=== PATIENT | male | born 1990 | race Caucasian/White ===

== ENCOUNTER → 2021-05-30 08:57 | Outpatient (BNVA) | payer OTHER, SELFPAY | PROVIDERS: Visit Provider Nurse Practitioner ==

== ENCOUNTER 2021-06-29 10:14 | Outpatient (REF) | payer OTHER, SELFPAY ==
[2021-07-05 07:26] LABS: Gastrin 166 pg/mL (<=100)
== END 2021-06-29 10:15 | disposition home or self-care (01) ==
LOC: HO.LAB 10:14
PROVIDERS: Visit Provider Nurse Practitioner
DX: K21.9 Gastro-esophageal reflux disease without esophagitis (principal)
CPT/HCPCS: 36415; 82941

== ENCOUNTER → 2021-07-04 08:48 | Outpatient (BNVA) | payer OTHER, SELFPAY | PROVIDERS: Visit Provider Nurse Practitioner ==

== ENCOUNTER → 2021-08-22 08:22 | Outpatient (BNVA) | payer OTHER, SELFPAY | PROVIDERS: Visit Provider Nurse Practitioner ==

== ENCOUNTER 2021-11-28 08:31 | Outpatient (REF) | payer OTHER, SELFPAY ==
--- NOTE | ~2021-11-28 | FL_ITS ---
EXAMINATION: XR UPPER GI SERIES WITH SMALL BOWEL CLINICAL INFORMATION: Abdominal pain. COMPARISON: None. TECHNIQUE: Routine upper GI contrast study with small bowel follow-through is performed. FINDINGS: Single supine view of the abdomen prior to the GI study reveals scattered stool in the colon. There are scattered granulomas in the pelvis. No organomegaly. No bony abnormality. Following oral administration of thick barium and effervescent granules, there is normal propagation of bolus from the oral cavity through the pharynx and esophagus and into the stomach without any evidence of obstruction, narrowing or stricture. The course, caliber and peristalsis of the stomach and the duodenal bulb and the sweep are normal in lying position. The mucosal pattern of the stomach and the duodenum is normal. Sequential images obtained through the small bowel loops reveal normal course, caliber and peristalsis of the small bowel loops. The small bowel transit time is 30 minutes. Spot images of the abdomen reveals normal ileocecal junction and terminal ileum. Appendix is not visualized. FLUOROSCOPY TIME: 2.9 minutes. DOSE AREA PRODUCT: 21.235 uGy-m2 (microgray-meter squared). FL/FL upper GI small bowel IMPRESSION: Unremarkable upper GI exam. Unremarkable small bowel follow-through with small bowel transit time of 30 minutes.
== END 2021-11-28 08:32 | disposition home or self-care (01) ==
LOC: HO.XRAY 08:31
PROVIDERS: PCP Nurse Practitioner; Visit Provider Nurse Practitioner
DX: K21.9 Gastro-esophageal reflux disease without esophagitis (principal); K25.9 Gastric ulcer, unspecified as acute or chronic, without hemorrhage or perforation
CPT/HCPCS: 74240; 74248

== ENCOUNTER → 2021-12-05 10:49 | Outpatient (BNVA) | payer OTHER, SELFPAY | PROVIDERS: PCP Nurse Practitioner; Visit Provider Nurse Practitioner | DX: K21.9 Gastro-esophageal reflux disease without esophagitis (principal); R19.7 Diarrhea, unspecified | CPT/HCPCS: 99212 ==

== ENCOUNTER 2022-02-18 13:15 | Outpatient (REF) | payer OTHER, SELFPAY ==
[2022-02-27 16:37] LABS: Pancreatic Elastase-1 >500 mcg/g
== END 2022-02-18 13:16 | disposition home or self-care (01) ==
LOC: HO.LNP 13:15
PROVIDERS: Visit Provider Nurse Practitioner
DX: K21.9 Gastro-esophageal reflux disease without esophagitis (principal); R19.7 Diarrhea, unspecified
CPT/HCPCS: 82656

== ENCOUNTER 2022-02-20 10:00 | Outpatient (REF) | payer OTHER, SELFPAY | END 2022-02-20 10:01 | disposition home or self-care (01) | LOC: HO.LAB 10:00 | PROVIDERS: Visit Provider Nurse Practitioner | DX: R19.7 Diarrhea, unspecified (principal); K21.9 Gastro-esophageal reflux disease without esophagitis; K30 Functional dyspepsia; K25.9 Gastric ulcer, unspecified as acute or chronic, without hemorrhage or perforation; Z01.82 Encounter for allergy testing | CPT/HCPCS: 36415; 86003; 99212 ==

== ENCOUNTER → 2022-03-20 12:19 | Outpatient (BNVA) | payer OTHER, SELFPAY | PROVIDERS: Visit Provider Nurse Practitioner | DX: K25.9 Gastric ulcer, unspecified as acute or chronic, without hemorrhage or perforation (principal); K21.9 Gastro-esophageal reflux disease without esophagitis | CPT/HCPCS: 99212 ==

== ENCOUNTER → 2022-06-26 10:59 | Outpatient (BNVA) | payer OTHER, SELFPAY | PROVIDERS: Visit Provider Nurse Practitioner | DX: K21.9 Gastro-esophageal reflux disease without esophagitis (principal); K58.2 Mixed irritable bowel syndrome; K30 Functional dyspepsia; K25.9 Gastric ulcer, unspecified as acute or chronic, without hemorrhage or perforation; Z79.899 Other long term (current) drug therapy | CPT/HCPCS: 99212 ==

== ENCOUNTER → 2023-02-12 10:47 | Outpatient (BNVA) | payer OTHER, SELFPAY | PROVIDERS: Visit Provider Nurse Practitioner | DX: K25.9 Gastric ulcer, unspecified as acute or chronic, without hemorrhage or perforation (principal); K21.9 Gastro-esophageal reflux disease without esophagitis; K58.2 Mixed irritable bowel syndrome; K30 Functional dyspepsia | CPT/HCPCS: 99212 ==

== ENCOUNTER → 2023-03-24 10:51 | Outpatient (BNVA) | payer OTHER, SELFPAY | PROVIDERS: Visit Provider Internal Medicine | DX: R05.9 Cough, unspecified (principal); R12 Heartburn; R11.10 Vomiting, unspecified | CPT/HCPCS: 99212 ==

== ENCOUNTER 2023-08-20 06:31 | Day surgery (SDC) | payer OTHER, SELFPAY ==
[2023-05-25 16:30] VITALS: BMI 21.0
--- NOTE | 2023-08-19 10:19 | HO.ANESPROP2 ---
Documented by User: Nu Pelletier NP 08/19/23 10:19 HPI - Anesthesia Eval Consult details Narrative: 33yo M for Upper Endoscopy [facility] Active Problems Active Problems: All Active Problems (Updated 03/24/23 @ 11:14 by Evy Combs MD) Regurgitation of food (Acute) Chronic heartburn (Acute) Irritable bowel syndrome with both constipation and diarrhea (Acute) Cough (Acute) Delayed gastric emptying (Acute) H/O esophagogastroduodenoscopy (Acute) Diarrhea (Acute) Gastric erosions (Acute) GERD (gastroesophageal reflux disease) (Acute) Surgical History Surgical History H/O esophagogastroduodenoscopy Social History Social History Household Members: Family Alcohol intake: never Patient Tobacco Use Status: Never used Tobacco Use of substances other than those prescribed or required for medical reasons: No Are you DNR?: No Advance Directives: No Advance Directives Information Provided: Yes Meds Allergies Allergy/AdvReac Type Severity Reaction Status Date / Time No Known Allergies Allergy Verified 03/24/23 10:54 Exam Exam Date and Time: August 19, 2023 1019 Height,Weight and Vital Signs: Height 5 ft 6 in Weight 58.967 kg Assessment and Plan Assessment Anesthesia Assessment: Chart Reviewed Documented by User: Segun Starks MD 08/20/23 07:31 [facility] Family History Family history of problems with anesthesia: No Surgical History Surgical History H/O esophagogastroduodenoscopy History of Problems with Anesthesia: No Social History Social History Household Members: Family Alcohol intake: never Patient Tobacco Use Status: Never used Tobacco Use of substances other than those prescribed or required for medical reasons: No Are you DNR?: No Advance Directives: No Advance Directives Information Provided: Yes Meds Allergies Allergy/AdvReac Type Severity Reaction Status Date / Time No Known Allergies Allergy Verified 03/24/23 10:54 Exam Airway Mallampati Class: II TM Dist: >3cm Neck ROM: Full Loose/Missing/Broken Teeth: No Heart: rrr Lungs: clear Assessment and Plan Final Anesthetic Review Family History of Problems with Anesthesia: No History of Problems with Anesthesia: No NPO: Yes ASA Class: II Final Preanesthetic Review: No Changes in Pt Med Stat, Meds/Allgs Chart Reviewed, Consent Obtained/Reviewed and Anes Risks/Benef Reviewed Patient Risk: Low Procedure Risk: Low Anesthetic Plan Anesthetic Plan: MAC: Disposition: Standard PACU
[2023-08-20 06:54] VITALS: BP 127/75; PULSE 48; RESP 16; TEMP 36.8; O2SAT 100
[2023-08-20] MEDS: Lactated Ringers 1,000 ML 100 ML IVCONT (07:11)
--- NOTE | 2023-08-20 07:11 | PC.NURSE ---
iv infiltrated and bruised to right hand. applied ice pack.
--- NOTE | 2023-08-20 07:53 | P.OP_ITS ---
Operative Note Operative Note Date of Service: 08/20/23 Narrative: Procedure: Esophagogastroduodenoscopy Endoscopist: Evy Combs MD Indication: Reflux, globus sensation Anesthesia Provider: Dr Segun Starks Anesthesia Type: MAC ?? EGD Procedure:?? The procedure, indications, preparation and potential complications were reviewed with the patient, who indicated understanding and gave written informed consent to proceed. A physical exam was performed. The endoscope was introduced through the mouth, and advanced to the second part of duodenum. The mucosa was carefully examined on slow withdrawal of the endoscope. The patient tolerated the procedure well. There were no immediate complications.? ? EGD Findings:? * Esophagus:? Normal mucosa noted in the entire esophagus. The Z line was at 40 cm. Middle and lower esophagus forceps biopsies were obtained to rule out eosinophilic esophagitis. * Stomach:? Normal mucosa was noted in the stomach. Retroflexion was performed in the cardia. * Duodenum:? Normal mucosa was noted in the whole of the examined duodenum. Cold forceps biopsies were taken from duodenal bulb and second portion of the duodenum to rule out celiac sprue. Additional intervention: A soft tipped Savary wire was introduced through the biopsy channel and advanced to the antrum. The gastroscope was then backed out. A Savary Mikael bougie was advanced over the guidewire and the esophagus was dilated to 19 mm. No resistance was felt. On relook, there was no tear or he noted, indicating no stricture or narrowing in the esophagus. ? EGD Impressions:? * Normal esophagus (biopsy, dilation) * Normal stomach * Normal duodenum (biopsy) ?? Recommendations:?? * Follow biopsy results. Our office will call or send a letter with results within 7-10 days. * There was no endoscopic evidence of erosive esophagitis on exam today despite being off PPI x 2 weeks. * If biopsies are negative as well, would consider Cha study next for further evaluation. * Avoid NSAIDs and smoking. Above has been reviewed with the patient.
--- NOTE | 2023-08-20 07:53 | MHC.SHP ---
Pre-Procedural Eval Section A Date of Service: 08/20/23 Section B Chief Complaint: Gastric ulcer,reflux disease Relevant Social History: None Present Medications: see Short Stay Collaborative assessment Medical History: No relevant PMH History of Previous Operations: No relevant previous surgery Allergies: Allergies Allergy/AdvReac Type Severity Reaction Status Date / Time No Known Allergies Allergy Verified 03/24/23 10:54 Review of Systems Review of Systems Comment: 10 point ROS negative Exam Exam Comment: Gen appear: No acute distress HEENT: no icterus Chest: No overt resp distress Abd: soft, nontender, nondistended Psych: Stable affect, answering questions appropriately Neuro: A/Ox3 noted to move all extremities spontaneously Ext: no peripheral edema Plan Diagnosis/Plan: Unchanged I have reviewed the history and physical and performed a pertinent physical examination on my patient. No changes have occurred unless specified. Time Spent With Patient Time: Total time managing care of this patient today ____ minutes.
[2023-08-20 08:19] VITALS: BP 115/55; PULSE 69; RESP 16; TEMP 36.1; O2SAT 98
[2023-08-20 08:34] VITALS: BP 114/75; PULSE 64; RESP 16; TEMP 36.5; O2SAT 100
[2023-08-20 08:49] VITALS: BP 105/67; PULSE 59; RESP 16; TEMP 36; O2SAT 100
== END 2023-08-20 09:14 | disposition home or self-care (01) ==
PROVIDERS: Visit Provider Internal Medicine
PROC: 0DJ08ZZ Inspection of Upper Intestinal Tract, Via Natural or Artificial Opening Endoscopic (ICD-10-PCS; CPT 43235; principal; 2023-08-20 07:30)
DX: K21.9 Gastro-esophageal reflux disease without esophagitis (principal)
CPT/HCPCS: 43239; 43248; 88305; C1769

== ENCOUNTER → 2023-08-20 06:31 | Outpatient (BNV) | payer OTHER, SELFPAY | PROVIDERS: Visit Provider Internal Medicine | DX: K21.9 Gastro-esophageal reflux disease without esophagitis (principal); R09.89 Other specified symptoms and signs involving the circulatory and respiratory systems | CPT/HCPCS: 43239; 43248 ==

== ENCOUNTER 2023-09-08 11:04 | Outpatient (AMB) | payer OTHER, SELFPAY ==
--- NOTE | 2023-09-08 11:10 | A.OFFVIS_ITS ---
Intake Vital Signs 09/08/23 11:12 Weight 138 lb 14.259 oz BP 120/63 Blood Pressure Location Lt brachial Position Sitting Pulse 59 Intake Visit Reasons: S/P EGD; Garret Intake Note: Vaughn presents in the office as a follow up EGD. CC: He states that he is here today for results to the [employer]. Electrocardiographic Technician Required: No Allergies No Known Allergies Allergy (Verified 09/08/23 11:12) HPI HPI Comments History of Present Illness Details 32y.o M with longstanding complaint of h eartburn refractory to PPI who is seeing me for second opinion and here for follow up after EGD done last month. Has seen January Antonio. EGD 2019: Mild erythema at GEJ, and antrum. No esophagus biopsies but stomach biopsies showed mildly elevated eosinophil count. Normal duodenal bx. Has tried multiple PPIs over the years without any significant relief including omeprazole, esomeprazole, lansoprazole, rabeprazole. States sx started almost 10 years ago and describes them as retrosternal heartburn with globus sensation increased coughing, sometimes also has regurgitation. No difficulty swallowing, no N,V. Does report intermittent diarrhea but notes it with dairy only and resolves when he avoids dairy. 08/20/23: EGD * Normal esophagus (biopsy, dilation) * Normal stomach * Normal duodenum (biopsy) Path: Diagnosis A. Duodenum, biopsy: Duodenal mucosa with no specific change. B. Esophagus, lower, biopsy: Squamous mucosa with mild hyperplasia and rare intraepithelial eosinophils (up to 1 per high-power field) consistent with reflux esophagitis, and columnar mucosa with minimal chronic inactive inflamm ation; negative for intestinal metaplasia and dysplasia; no evidence of eosinophilic esophagitis. C. Esophagus, middle, biopsy: Squamous mucosa with no specific change; no columnar mucosa present; no evidence of eosinophilic esophagitis 09/08/23: Results of EGD and biopsy findings reviewed. Discussed that no endoscopic evidence of reflux such as erosive esophagitis, or other etiologies such as hiatal hernia, EoE etc. EGD was done off ppi and only had rare IELs on histology. He does report slight improvement of globus sensation with dilation. [facility] Surgical History H/O esophagogastroduodenoscopy Family History (Updated 09/08/23 @ 11:12 by BERT Miller) Mother Esophageal cancer Social History Household Members: Family Alcohol intake: never Patient Tobacco Use Status: Never used Tobacco Review of Systems Const All systems reviewed & are unremarkable except as noted in HPI and below Physical Exam Vital Signs: Last Vital Signs Pulse 59 09/08/23 11:12 BP 120/63 09/08/23 11:12 Gen appear: NAD HEENT: nonicteric, no cervical lymphadenopathy Chest: CTA CVS: Regular S1/S2 Abd: soft, nontender, nondistended, bowel sounds + Ext: no peripheral edema Neuro: A/Ox3, noted to move all extremities spontaneously Psych: interacting appropriately Assessment & Plan Assessment & Plan (1) Cough: Code(s): R05.9 - Cough, unspecified (2) Chronic heartburn: Code(s): R12 - Heartburn (3) Regurgitation of food: Code(s): R11.10 - Vomiting, unspecified Plan Discussed with the pt that in view of above findings ddx include hypersensitive esophagus vs functional dyspepsia vs NERD. Will trial TCA for first two and if minimal response can consider pH/impedence study. Plan: - Start nortriptyline 10mg PO at night - Common side effects reviewed - Pt advised to increase the dose to 20mg PO after 14 days - Follow up after 3 months to review response Medications: New nortriptyline Take 1 capsule at night for 2 weeks and then increase to 2 capsules at night 20 mg (2 x 10 mg) PO BEDTIME 180 caps 1RF 90 days Coding Level of Care Code Est Pt Level 4 (33449) Diagnoses Cough R05.9 Chronic heartburn R12 Regurgitation of food R11.10
[2023-09-08 11:12] VITALS: BP 120/63; PULSE 59
== END 2023-09-08 12:02 | disposition home or self-care (01) ==
PROVIDERS: Visit Provider Internal Medicine
DX: R05.9 Cough, unspecified (principal); R12 Heartburn; R11.10 Vomiting, unspecified
CPT/HCPCS: 99214

== ENCOUNTER → 2023-09-08 11:04 | Outpatient (BNVA) | payer OTHER, SELFPAY | PROVIDERS: Visit Provider Internal Medicine | DX: R12 Heartburn (principal); R11.10 Vomiting, unspecified; R05.9 Cough, unspecified | CPT/HCPCS: 99212 ==

== ENCOUNTER 2024-01-06 10:46 | Outpatient (AMB) | payer OTHER, SELFPAY ==
--- NOTE | 2024-01-06 10:49 | A.OFFVIS_ITS ---
Intake Vital Signs 01/06/24 10:50 Weight 149 lb 14.629 oz BP 144/78 H Blood Pressure Location Lt brachial Position Sitting Pulse 98 Intake Visit Reasons: follow up gastric ulcer Intake Note: Vaughn presents in the office as a follow up. CC: He states that there is no changes - treatment has not helped. Allergies No Known Allergies Allergy (Verified 01/06/24 10:51) HPI HPI Comments History of Present Illness Details 32y.o M with longstanding complaint of h eartburn refractory to PPI who is seeing me for second opinion and here for follow up after EGD done last month. Has seen January Antonio. EGD 2019: Mild erythema at GEJ, and antrum. No esophagus biopsies but stomach biopsies showed mildly elevated eosinophil count. Normal duodenal bx. Has tried multiple PPIs over the years without any significant relief including omeprazole, esomeprazole, lansoprazole, rabeprazole. States sx started almost 10 years ago and describes them as retrosternal heartburn with globus sensation increased coughing, sometimes also has regurgitation. No difficulty swallowing, no N,V. Does report intermittent diarrhea but notes it with dairy only and resolves when he avoids dairy. 08/20/23: EGD * Normal esophagus (biopsy, dilation) * Normal stomach * Normal duodenum (biopsy) Path: Diagnosis A. Duodenum, biopsy: Duodenal mucosa with no specific change. B. Esophagus, lower, biopsy: Squamous mucosa with mild hyperplasia and rare intraepithelial eosinophils (up to 1 per high-power field) consistent with reflux esophagitis, and columnar mucosa with minimal chronic inactive inflammation; negative for intestinal metaplasia and dysplasia; no evidence of eosinophilic esophagitis. C. Esophagus, middle, biopsy: Squamous mucosa with no specific change; no columnar mucosa present; no evidence of eosinophilic esophagitis 09/08/23: Results of EGD and biopsy findings reviewed. Discussed that no endoscopic evidence of reflux such as erosive esophagitis, or other etiologies such as hiatal hernia, EoE etc. EGD was done off ppi and only had rare IELs on histology. He does report slight improvement of globus sensation with dilation. 01/06/24: Here for follow up after TCA trial. Reports minimal improvement on Notryptiline 20 which he still continues. Sx are now a bit unpredictable i.e not always triggered by certain foods. Not on any PPI therapy but did not worsening of sx when went off PPIs. PFSH Surgical History H/O esophagogastroduodenoscopy Family History (Updated 09/08/23 @ 11:12 by BERT Miller) Mother Esophageal cancer Social History Household Members: Family Alcohol intake: never Patient Tobacco Use Status: Never used Tobacco Review of Systems Const All systems reviewed & are unremarkable except as noted in HPI and below Physical Exam Vital Signs: Last Vital Signs Pulse 98 01/06/24 10:50 BP 144/78 H 01/06/24 10:50 NAD Abd soft, nontender No overt resp distress A/Ox3 norm gait Assessment & Plan Assessment & Plan (1) Chronic heartburn: Code(s): R12 - Heartburn (2) Regurgitation of food: Code(s): R11.10 - Vomiting, unspecified Plan Discussed with the pt that in view of above findings ddx include hypersensitive esophagus vs functional dyspepsia vs NERD. Will escalate nortriptyline dose to 30 and refer for pH impedence study (favored over [place] to also capture weakly acidic events) to r/o NERD vs reflux hypersensitivity vs functional hearturn. Plan: - Increase nortriptyline 30mg PO at night - Common side effects reviewed - [place] be [place] [facility] [place] [facility] Follow up 6 weeks Medications: Changed From nortriptyline Take 1 capsule at night for 2 weeks and then increase to 2 capsules at night 20 mg (2 x 10 mg) PO BEDTIME 90 days 180 caps 1RF To nortriptyline Take 3 capsules at night 30 mg (3 x 10 mg) PO BEDTIME 90 days 270 caps 0RF Discontinued sucralfate Discontinued Reason: Patient no longer taking 2 grams (2 x 1 gram) PO BID 30 days 120 tabs 6RF rabeprazole Discontinued Reason: Patient no longer taking 40 mg (2 x 20 mg) PO BID 30 days 120 tabs 6RF K21.9 - Gastro-esophageal reflux disease without esophagitis, K25.9 - Gastric ulcer, unspecified as acute or chronic, without hemorrhage or perforation Coding Level of Care Code Est Pt Level 4 (23875) Diagnoses Chronic heartburn R12 Regurgitation of food R11.10
[2024-01-06 10:50] VITALS: BP 144/78; PULSE 98
== END 2024-01-06 11:17 | disposition home or self-care (01) ==
PROVIDERS: Visit Provider Internal Medicine
DX: R12 Heartburn (principal); R11.10 Vomiting, unspecified
CPT/HCPCS: 99214

== ENCOUNTER → 2024-01-06 10:46 | Outpatient (BNVA) | payer OTHER, SELFPAY | PROVIDERS: Visit Provider Internal Medicine | DX: R12 Heartburn (principal); R11.10 Vomiting, unspecified | CPT/HCPCS: 99212 ==

== ENCOUNTER 2024-02-17 11:02 | Outpatient (AMB) | payer OTHER, SELFPAY ==
--- NOTE | 2024-02-17 11:05 | A.OFFVIS_ITS ---
Vital Signs 02/17/24 11:07 Weight 154 lb 5.177 oz BP 127/80 Blood Pressure Location Lt brachial Position Sitting Pulse 97 Intake Visit Reasons: 6 weeks gastric ulcer Intake Note: Li presents in the office as a 6 week follow up for gastric ulcer. CC: Report that the increase in the dosage has not changed anything. Phlebotomy Director Required: No Allergies No Known Allergies Allergy (Verified 02/17/24 11:08) HPI Comments Details: 32y.o M with longstanding complaint of heartburn refractory to PPI who is seeing me for second opinion and here for follow up after EGD done last month. Has seen January Antonio. EGD 2019: Mild erythema at GEJ, and antrum. No esophagus biopsies but stomach biopsies showed mildly elevated eosinophil count. Normal duodenal bx. Has tried multiple PPIs over the years without any significant relief including omeprazole, esomeprazole, lansoprazole, rabeprazole. States sx started almost 10 years ago and describes them as retrosternal heartburn with globus sensation increased coughing, sometimes also has regurgitation. No difficulty swallowing, no N,V. Does report intermittent diarrhea but notes it with dairy only and resolves when he avoids dairy. 08/20/23: EGD * Normal esophagus (biopsy, dilation) * Normal stomach * Normal duodenum (biopsy) Path: Diagnosis A. Duodenum, biopsy: Duodenal mucosa with no specific change. B. Esophagus, lower, biopsy: Squamous mucosa with mild hyperplasia and rare intraepithelial eosinophils (up to 1 per high-power field) consistent with reflux esophagitis, and columnar mucosa with minimal chronic inactive inflammation; negative for intestinal metaplasia and dysplasia; no evidence of eosinophilic esophagitis. C. Esophagus, middle, biopsy: Squamous mucosa with no specific change; no columnar mucosa present; no evidence of eosinophilic esophagitis 09/08/23: Results of EGD and biopsy findings reviewed. Discussed that no endoscopic evidence of reflux such as erosive esophagitis, or other etiologies such as hiatal hernia, EoE etc. EGD was done off ppi and only had rare IELs on histology. He does report slight improvement of globus sensation with dilation. 01/06/24: Here for follow up after TCA trial. Reports minimal improvement on Notryptiline 20 which he still continues. Sx are now a bit unpredictable i.e not always triggered by certain foods. Not on any PPI therapy but did not worsening of sx when went off PPIs. 02/17/24: Here for follow up. No significant response to 30mg dosing of nortriptyline but i reviewed that may take up to 8 weeks before noticing response. Pt reports getting a phone call from [facility] but was not able to maco an appt at that time. Will call their office back. Otherwise, remaining c/o unchanged. PFSH Surgical History H/O esophagogastroduodenoscopy Family History Mother Esophageal cancer Social History Household Members: Family Alcohol intake: never Patient Tobacco Use Status: Never used Tobacco Review of Systems Const All systems reviewed & are unremarkable except as noted in HPI and below Physical Exam Vital Signs: Last Vital Signs Pulse 97 02/17/24 11:07 BP 127/80 02/17/24 11:07 NAD Nonicteric Normocephalic No overt resp distress No peripheral edema Assessment & Plan Assessment & Plan (1) Chronic heartburn: Code(s): R12 - Heartburn Category: Medical (2) Regurgitation of food: Code(s): R11.10 - Vomiting, unspecified Category: Medical Plan Discussed with the pt that in view of above findings ddx include hypersensitive esophagus vs functional dyspepsia vs NERD. Cont nortriptyline 30 mg. Referral sent to [facility] for pH impedence study (favored over [place] to also capture weakly acidic events) to r/o NERD vs reflux hypersensitivity vs functional hearturn. Pt aware to call them back to book appt. Plan: - Cont nortriptyline 30mg PO at night - Common side effects reviewed - Follow up after ph-impedance study completed Medications: Refilled nortriptyline Take 3 capsules at night 30 mg (3 x 10 mg) PO BEDTIME 270 caps 1RF 90 days Coding Level of Care Code Est Pt Level 3 (86654) Diagnoses Chronic heartburn R12 Regurgitation of food R11.10
[2024-02-17 11:07] VITALS: BP 127/80; PULSE 97
== END 2024-02-17 11:49 | disposition home or self-care (01) ==
PROVIDERS: Visit Provider Internal Medicine
DX: R12 Heartburn (principal); R11.10 Vomiting, unspecified
CPT/HCPCS: 99213

== ENCOUNTER → 2024-02-17 11:02 | Outpatient (BNVA) | payer OTHER, SELFPAY | PROVIDERS: Visit Provider Internal Medicine | DX: R12 Heartburn (principal); R11.10 Vomiting, unspecified | CPT/HCPCS: 99212 ==

== ENCOUNTER 2024-09-17 13:53 | Outpatient (AMB) | payer OTHER, SELFPAY ==
--- NOTE | 2024-09-17 13:58 | MHC.OFFWIV ---
Intake Vital Signs 09/17/24 13:59 Height 5 ft 8 in Weight 159 lb BMI 24.2 BP 112/62 Blood Pressure Location Lt brachial Position Sitting Pulse 96 Pulse Source Pulse Oximeter Temp 98.8 F Temp Source Oral Pulse Oximetry (%) 97 Oxygen Delivery Method Room Air Intake Visit Reasons: EP, pain in groin/testicles Patient Tobacco Use Status: Never used Tobacco Allergies No Known Allergies Allergy (Verified 09/17/24 14:00) HPI EP, pain in groin/testicles HPI Details Patient is a 34-year-old male with a history of IBS and GERD who comes to the walk-in clinic reporting a 1 year history of discomfort to the testicles bilaterally. He denies being sexually active prior to symptoms starting, or within the past year. The symptom does not interfere with masturbating or any other activities of daily living. His only other associated symptom is that he sometimes dribbles after voiding, however no baseline incontinence of urine otherwise, gross hematuria, urinary frequency or hesitancy or other altered stream issues. He denies pain with bowel movements, perineal pain or rectal pain, penile pain or discharge, rash, nausea vomiting diarrhea, weakness or dizziness, myalgias or malaise, abdominal pain, back or flank pain, or other significant associated symptoms. [facility] Surgical History H/O esophagogastroduodenoscopy Family History Mother Esophageal cancer Social History Household Members: Family Alcohol intake: never Patient Tobacco Use Status: Never used Tobacco Review of Systems Const All systems reviewed & are unremarkable except as noted in HPI and below Physical Exam Vital Signs: Last Vital Signs Temp 98.8 F 09/17/24 13:59 Pulse 96 09/17/24 13:59 BP 112/62 09/17/24 13:59 Pulse Ox 97 09/17/24 13:59 Oxygen Delivery Method Room Air 09/17/24 13:59 BMI result Body Mass Index 24.2 Results AMB Urinalysis, Automated UA Leukoctes 0 Cory/uL Last Edit by Alexandra Billy CMA on 09/17/24 14:12 UA Nitrite Negative Last Edit by Alexandra Billy CMA on 09/17/24 14:12 UA Urobilinogen 0.2 mg/dL Last Edit by Alexandra Billy CMA on 09/17/24 14:12 UA Protein 0 mg/dL Last Edit by Alexandra Billy, RADHA on 09/17/24 14:12 UA pH 6.5 Last Edit by Alexandra Billy, RADHA on 09/17/24 14:12 UA Blood 0 Jerome/uL Last Edit by Alexandra Billy CMA on 09/17/24 14:12 UA Specific Campbell 1.005 Last Edit by Alexandra Billy, RADHA on 09/17/24 14:12 UA Ketone Negative Last Edit by Alexandra Billy CMA on 09/17/24 14:12 UA Bilirubin 0 mg/dL Last Edit by Alexandra Billy CMA on 09/17/24 14:12 UA Glucose 0 mg/dL Last Edit by Alexandra Billy CMA on 09/17/24 14:12 Results Reviewed Results Reviewed: Laboratory Last Values Urine pH (Auto) 6.5 09/17/24 14:10 Specific Campbell (Auto) 1.005 09/17/24 14:10 Urine Protein (Auto) 0 mg/dL 09/17/24 14:10 Glucose (UA)(Auto) 0 mg/dL 09/17/24 14:10 Urine Ketones (Auto) Negative 09/17/24 14:10 Urine Blood (Auto) 0 Jerome/uL 09/17/24 14:10 Urine Nitrite (Auto) Negative 09/17/24 14:10 Urine Bilirubin (Auto) 0 mg/dL 09/17/24 14:10 Urine Urobilinogen (Auto) 0.2 mg/dL 09/17/24 14:10 Leukocyte Esterase (Auto) 0 Cory/uL 09/17/24 14:10 Assessment & Plan Assessment & Plan (1) Painful scrotum: Code(s): N50.82 - Scrotal pain Plan Patient is a 34-year-old male with a history of IBS and GERD who comes to the walk-in clinic reporting a year history of chronic scrotal discomfort. He reports being low risk for STDs as he is not sexually active. Urine was unremarkable on dip today. Physical exam overall unremarkable too, except for bilateral diffuse scrotal discomfort per patient. No penile or scrotal rash or lesions noted. He is overdue for medical evaluation by PCP and apparently was dropped for not being seen for 4 years. Therefore he is in need of a new provider, and we discussed that he should call the [facility] office [place] as he might be able to get in there sooner than most other offices, in light of new providers with open panels. In the meantime, I did put through a CBC for him. He is also welcome to come back to the walk-in on a weekday to be evaluated again to see if a scrotal ultrasound could be ordered on a STAT basis, although I told him that this is not guaranteed. I do not have the option for this here today on a Thursday however. In the meantime, he will monitor symptoms and will definitely follow up if symptoms persist or worsen. He was told to go to the emergency department with severe or worrisome symptoms. Orders: Orders AMB Urinalysis Automated 09/17/24 Z13.9 - Encounter for screening, unspecified Complete Blood Count no Diff 09/17/24 N50.82 - Scrotal pain Coding Level of Care Code Est Pt Level 4 (83545) Diagnoses Painful scrotum N50.82
[2024-09-17 13:59] VITALS: BP 112/62; PULSE 96; TEMP 37.1; O2SAT 97; BMI 24.2
== END 2024-09-17 14:51 | disposition home or self-care (01) ==
PROVIDERS: Visit Provider Physician Assistant Medical
DX: Z13.9 Encounter for screening, unspecified (principal)

== ENCOUNTER → 2024-09-17 13:53 | Outpatient (BNVA) | payer OTHER, SELFPAY | DX: N50.82 Scrotal pain (principal) | CPT/HCPCS: 81003 ==

== ENCOUNTER 2024-09-26 08:59 | Outpatient (REF) | payer OTHER, SELFPAY ==
[2024-09-26 10:10] LABS: Hematocrit 44.4 % (42.0-52.0); Mean Corpuscular HGB Conc 33.8 g/dl (31.0-36.0); Mean Corpuscular Hemoglobin 31.1 pg (27.0-33.0); Mean Corpuscular Volume 92.1 fL (80.0-98.0); Mean Platelet Volume 9.2 fL (9.4-12.4); Platelet Count 234 X10*3/uL (160-400); Red Blood Count 4.82 X10*6/uL (4.60-5.80); Red Cell Distribution Width 12.1 % (11.0-16.0); White Blood Count 5.4 X10*3/uL (4.8-10.8)
== END 2024-09-26 09:00 | disposition home or self-care (01) ==
LOC: HO.HMGCLDS 08:59
PROVIDERS: Visit Provider Physician Assistant Medical
DX: N50.82 Scrotal pain (principal)
CPT/HCPCS: 36415; 85027

== ENCOUNTER 2024-11-14 11:44 | Outpatient (AMB) | payer OTHER, SELFPAY ==
--- NOTE | 2024-11-14 11:53 | MHC.OFFVIS ---
Vital Signs 11/14/24 11:56 Height 5 ft 8 in Weight 158 lb 11.725 oz BMI 24.1 BP 127/82 Blood Pressure Location Lt brachial Position Sitting Pulse 100 Intake Visit Reasons: pt req follow up Intake Note: Vaughn presents in the office as a follow up. CC: states that he was unale to take care of himself and he wants to refresh on the plan of care from the last time. Want Ad Receiver Required: No Allergies No Known Allergies Allergy (Verified 11/14/24 11:56) HPI Comments Details: 32y.o M with longstanding complaint of heartburn refractory to PPI who is seeing me for second opinion and here for follow up after EGD done last month. Has seen January Alvarez. EGD 2019: Mild erythema at GEJ, and antrum. No esophagus biopsies but stomach biopsies showed mildly elevated eosinophil count. Normal duodenal bx. Has tried multiple PPIs over the years without any significant relief including omeprazole, esomeprazole, lansoprazole, rabeprazole. States sx started almost 10 years ago and describes them as retrosternal heartburn with globus sensation increased coughing, sometimes also has regurgitation. No difficulty swallowing, no N,V. Does report intermittent diarrhea but notes it with dairy only and resolves when he avoids dairy. 08/20/23: EGD Normal esophagus (biopsy, dilation) Normal stomach Normal duodenum (biopsy) Path: Diagnosis A. Duodenum, biopsy: Duodenal mucosa with no specific change. B. Esophagus, lower, biopsy: Squamous mucosa with mild hyperplasia and rare intraepithelial eosinophils (up to 1 per high-power field) consistent with reflux esophagitis, and columnar mucosa with minimal chronic inactive inflammation; negative for intestinal metaplasia and dysplasia; no evidence of eosinophilic esophagitis. C. Esophagus, middle, biopsy: Squamous mucosa with no specific change; no columnar mucosa present; no evidence of eosinophilic esophagitis 09/08/23: Results of EGD and biopsy findings reviewed. Discussed that no endoscopic evidence of reflux such as erosive esophagitis, or other etiologies such as hiatal hernia, EoE etc. EGD was done off ppi and only had rare IELs on histology. He does report slight improvement of globus sensation with dilation. 01/06/24: Here for follow up after TCA trial. Reports minimal improvement on Notryptiline 20 which he still continues. Sx are now a bit unpredictable i.e not always triggered by certain foods. Not on any PPI therapy but did not worsening of sx when went off PPIs. 02/17/24: Here for follow up. No significant response to 30mg dosing of nortriptyline but i reviewed that may take up to 8 weeks before noticing response. Pt reports getting a phone call from [facility] but was not able to maco an appt at that time. Will call their office back. Otherwise, remaining c/o unchanged. 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 Reports good response to nortryptyline carroll as notices return of sx if he forgets to take it for more than 3 days in a row. Occ will have break through heartburn carroll after specific foods. Had been referred to [facility] for pH impedence study but was not able to book appt due to his schedule as above. Now interested in pursuing it. [facility] Surgical History H/O esophagogastroduodenoscopy Family History Mother Esophageal cancer Social History Household Members: Family Alcohol intake: never Patient Tobacco Use Status: Never used Tobacco Review of Systems Const All systems reviewed & are unremarkable except as noted in HPI and below Physical Exam Vital Signs: Last Vital Signs Pulse 100 11/14/24 11:56 BP 127/82 11/14/24 11:56 BMI result Body Mass Index 24.1 No apparent distress Nonicteric Abdomen soft, nondistended Alert and oriented x3, normal gait Assessment & Plan Assessment & Plan (1) Chronic heartburn: Code(s): R12 - Heartburn Category: Medical (2) GERD (gastroesophageal reflux disease): Code(s): K21.9 - Gastro-esophageal reflux disease without esophagitis Category: Medical (3) Regurgitation of food: Code(s): R11.10 - Vomiting, unspecified Category: Medical Plan As prev discussed 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 Cont nortriptyline 30 mg. Pt advised to call [facility] to follow up on the referral sent for pH impedence study (favored over Benson to also capture weakly acidic events) to r/o NERD vs reflux hypersensitivity vs functional hearturn. Plan: - Cont nortriptyline 30mg PO at night - Famotidine 20 mg PRN for occ food triggered heartburn. - Follow up after ph-impedance study completed Medications: New famotidine (Acid Cyber Instructor (famotidine)) 20 mg PO BEDTIME PRN 90 tabs 0RF dyspepsia Refilled nortriptyline Take 3 capsules at night 30 mg (3 x 10 mg) PO BEDTIME 270 caps 1RF 90 days Coding Level of Care Code Est Pt Level 3 (02648) Diagnoses Chronic heartburn R12 GERD (gastroesophageal reflux disease) K21.9 Regurgitation of food R11.10
[2024-11-14 11:56] VITALS: BP 127/82; PULSE 100; BMI 24.1
== END 2024-11-14 12:25 | disposition home or self-care (01) ==
PROVIDERS: Visit Provider Internal Medicine
DX: R12 Heartburn (principal); K21.9 Gastro-esophageal reflux disease without esophagitis; R11.10 Vomiting, unspecified
CPT/HCPCS: 99213

== ENCOUNTER → 2024-11-14 11:44 | Outpatient (BNVA) | payer OTHER, SELFPAY | PROVIDERS: Visit Provider Internal Medicine | DX: K21.9 Gastro-esophageal reflux disease without esophagitis (principal); R11.10 Vomiting, unspecified; R12 Heartburn | CPT/HCPCS: 99212 ==

== ENCOUNTER 2024-11-23 11:31 | Outpatient (AMB) | payer OTHER, SELFPAY ==
[2024-11-23 12:06] VITALS: BP 112/84; PULSE 98; O2SAT 97
--- NOTE | 2024-11-23 12:06 | AM.OFFWIN_ITS ---
Intake Vital Signs 11/23/24 12:06 Weight 164 lb 6 oz BP 112/84 Blood Pressure Location Rt brachial Position Sitting Pulse 98 Pulse Source Pulse Oximeter Pulse Oximetry (%) 97 Oxygen Delivery Method Room Air Intake Visit Reasons: EP painful lump on LT breast Intake Note: Patient here for left breast lump that he noticed last week Patient Tobacco Use Status: Never used Tobacco Allergies No Known Allergies Allergy (Verified 11/23/24 12:06) Do you need a note to return to daycare/school/sports/work: No HPI HPI Comments History of Present Illness Details 34 y/o male patient who presents to the walk in clinic with c/o left breast Lump that is tender to touch. Pt reports feeling the lump last week, but in the past few days lump has resolved. [facility] Medical History (Updated 11/23/24 @ 12:24 by Zeenat Francois NP) Gynecomastia, male Lump of breast, left Surgical History H/O esophagogastroduodenoscopy Family History Mother Esophageal cancer Social History Household Members: Family Alcohol intake: never Patient Tobacco Use Status: Never used Tobacco Review of Systems Const All systems reviewed & are unremarkable except as noted in HPI and below Physical Exam Vital Signs: Last Vital Signs Pulse 98 11/23/24 12:06 BP 112/84 11/23/24 12:06 Pulse Ox 97 11/23/24 12:06 Oxygen Delivery Method Room Air 11/23/24 12:06 Const General: cooperative and no acute distress Orientation/consciousness: patient oriented x3 Chest Other: unable to palpate any masses, nodes or lumps on both breasts. Breast/axilla inspection: abnormal inspection of the breast (large breast tissue - gynecomastia) Breast/axilla palpation: normal palpation of the breasts and no axillary lymphadenopathy Neuro General: patient oriented x3 Assessment & Plan Assessment & Plan (1) Lump of breast, left: Code(s): N63.20 - Unspecified lump in the left breast, unspecified quadrant Qualifiers: Breast mass location: unspecified quadrant Qualified Code(s): N63.20 - Unspecified lump in the left breast, unspecified quadrant Plan: Unable to locate specific region where Lump could be. Breast Exam normal, no masses, or lumps appreciated. Advised Pt to come to the clinic when Lump appears. (2) Gynecomastia, male: Code(s): N62 - Hypertrophy of breast Plan: Discussed surgical approach as treatment. Pt to f/u with PCP if he desires treatment. Coding Level of Care Code Est Pt Level 3 (52509) Diagnoses Mass of left breast, unspecified quadrant N63.20 Breast mass location: unspecified quadrant Gynecomastia, male N62 Time Spent (min) 15
== END 2024-11-23 13:14 | disposition home or self-care (01) ==
PROVIDERS: Visit Provider Nurse Practitioner Family
DX: N63.20 Unspecified lump in the left breast, unspecified quadrant (principal); N62 Hypertrophy of breast

== ENCOUNTER → 2024-11-23 11:31 | Outpatient (BNVA) | payer OTHER, SELFPAY | DX: N62 Hypertrophy of breast (principal); N63.20 Unspecified lump in the left breast, unspecified quadrant | CPT/HCPCS: 99212 ==